=== PATIENT | male | born 1990 ===

== ENCOUNTER 2018-07-01 18:24 | Emergency (ER) | payer OTHER ==
[2018-07-01 18:37] VITALS: TEMP 98.8
--- NOTE | 2018-07-01 19:07 | ED PDOC ---
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 Patient cites school, work, and "life" as his stressors recently. Otherwise, denies suicidal ideation, homicidal ideation, hallucinations, shortness of breath, recent travel, prolonged immobility, recent surgery, leg / calf pain or swelling, history of blood clots, and any pleuritic pain. Pt denies any personal cardiac history, father has h/o stroke. pt does not smoke cigarettes PMD: none provided Past Medical History Reviewed: Historical Data, Nursing Documentation, Vital Signs Vital Signs: Last Vital Signs Temp 98.8 F 07/01/18 18:35 Pulse 120 H 07/01/18 18:35 Resp 16 07/01/18 18:35 BP 151/84 H 07/01/18 18:35 Pulse Ox 97 07/01/18 18:35 - Medical History PMH: Anxiety (not on meds) - Surgical History Surgical History: No Surg Hx - Family History Family History: States: Stroke (father), Hypertension (mother) - Social History Current smoker - smoking cessation education provided: No Alcohol: Social (last drink 2 days ago) Drugs: Cannabis (almost daily use) - Immunization History Hx Tetanus Toxoid Vaccination: No Hx Influenza Vaccination: No Hx Pneumococcal Vaccination: No - Home Medications Home Medications: Ambulatory Orders Medication Instructions Recorded No Known Home Med 01/30/17 - Allergies Allergies/Adverse Reactions: Allergies Allergy/AdvReac Type Severity Reaction Status Date / Time No Known Allergies Allergy Unverified 07/01/18 18:34 Review of Systems ROS Statement: Except As Marked, All Systems Reviewed And Found Negative Cardiovascular: Positive for: Chest Pain (tightness right sided) Respiratory: Negative for: Shortness of Breath, Pleuritic Pain Musculoskeletal: Negative for: Leg Pain (or swelling) Psych: Positive for: Anxiety. Negative for: Suicidal ideation (or homicidal ideation), Other (hallucinations) Physical Exam - Reviewed Nursing Documentation Reviewed: Yes Vital Signs Reviewed: Yes - Physical Exam Comments: GENERAL APPEARANCE: Patient is awake, alert, oriented x 3, anxious appearing. SKIN: Warm, dry; (-) cyanosis HEAD: atraumatic, normocephalic EYES: (-) conjunctival pallor, (-) scleral icterus, (-) nystagmus. ENMT: Mucous membranes moist. Airway patent: (-) stridor. NECK: (-) tenderness, (-) stiffness, (-) lymphadenopathy. HEART AND CARDIOVASCULAR: (+) tachycardia with regular rhythm; (-) murmur, (-) gallop. CHEST AND RESPIRATORY: chest wall; (+)point tenderness to right upper chest (- )crepitus (-)swelling, Lungs; (-) rales, (-) rhonchi, (-) wheezes; breath sounds equal. EXTREMITIES: pulses +2, no leg swelling or tenderness NEURO AND PSYCH: Mental status as above. 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 Pupils equal and reactive; EOMI; (-) facial asymmetry - Laboratory Results Result Diagrams: 07/01/18 19:15 07/01/18 19:15 - ECG ECG: Positive for: Interpreted By Me (discussed with Dr. Atkins), Viewed By Me ECG Rhythm: Positive for: Normal QRS, Normal ST Segment, Sinus Tachycardia (140bpm) O2 Sat by Pulse Oximetry: 97 Medical Decision Making Medical Decision Making: Initial Impression: anxiety Time: 1857 Initial Plan: --EKG --CMP --Trop I --CBC with differential --CXR --Place pt on quality assurance monitor final --Discussed case with Dr. Atkins who agrees with plan and assessment. He recommends 0.5mg Xanax and reevaluation of heart rate. --Crisis evaluation 2029 CXR reviewed by me as no active disease. 2034 Patient refused Xanax and states that he has been feeling much better for the past half hour with no more chest pain. Heart rate is now 65-70bpm and his heart and lungs are clear on reeval. He states he is ready to go home and plans to follow up with his PMD to obtain a psych referral. He notes he has been here multiple times and it has always been anxiety related. Discussed results, diagnosis, treatment, return precautions and f/u with pt who is understanding, in agreement and stable for dc Scribe Attestation: Documented by Natalie Hoover acting as a scribe for Murtaza Leonard PA-C. Provider Scribe Attestation: All medical record entries made by the Scribe were at my direction and personally dictated by me. I have reviewed the chart and agree that the record accurately reflects my personal performance of the history, physical exam, medical decision making, and the department course for this patient. I have also personally directed, reviewed, and agree with the discharge instructions and disposition. Disposition - Clinical Impression Clinical Impression: Anxiety, Chest pain, unspecified - Patient ED Disposition Is Patient to be Admitted: No Counseled Patient/Family Regarding: Studies Performed, Diagnosis, Need For Followup - Disposition Referrals: your, doctor [Other] Disposition: Routine/Home Disposition Time: 20:45 Condition: IMPROVED Additional Instructions: Thank you for letting us take care of you today. The emergency medical care you received today was directed at your acute symptoms. If you were prescribed any medication, please fill it and take as directed. It may take several days for your symptoms to resolve. Return to the Emergency Department if your symptoms worsen, do not improve, or if you have any other problems. Please contact your doctor in 2 days for re-evaluation and follow up / or call one of the physicians/clinics you have been referred to that are listed on the Patient Visit Information form that is included in your discharge packet. Bring any paperwork you were given at discharge with you along with any medications you are taking to your follow up visit. Our treatment cannot replace ongoing medical care by a primary care provider (PCP) outside of the emergency department. Instructions: Anxiety, Adult (DC), Chest Pain (DC) Forms: [employer] (Latvian) Print Language: IRANIAN - POA Present On Arrival: None
[2018-07-01 19:22] LABS: BASO % 0.6 % (0.0-2.0); EOS # 0.1 K/uL (0.0-0.7); EOS % 0.8 % (0.0-4.0); HEMOGLOBIN 14.4 g/dL (12.0-18.0); LYMPH # 1.1 K/uL (1.0-4.3); LYMPH % 15.5 % (20.0-40.0); MEAN CELL VOLUME 87.1 fl (80.0-94.0); MEAN CORPUSCULAR HEMOGLOBIN 29.5 pg (27.0-31.0); MEAN CORPUSCULAR HGB CONC 33.9 g/dL (33.0-37.0); MEAN PLATELET VOLUME 8.7 fl (7.2-11.7); MONO # 0.4 K/uL (0.0-0.8); MONO % 6.2 % (0.0-10.0); NEUT # 5.3 K/uL (1.8-7.0); NEUT % 76.9 % (50.0-75.0); RBC 4.87 Mil/uL (4.40-5.90); RED CELL DISTRIBUTION WIDTH 11.8 % (11.5-14.5); WHITE BLOOD COUNT 6.9 K/uL (4.8-10.8)
[2018-07-01 19:32] LABS: ALB/GLOB RATIO 1.7 (1.0-2.1); ALBUMIN 4.9 g/dL (3.5-5.0); ALT/SGPT 35 U/L (21-72); AST/SGOT 34 U/L (17-59); BLOOD UREA NITROGEN 26 mg/dl (9-20); CALCIUM 9.9 mg/dL (8.4-10.2); GFR NON-AFRICAN AMERICAN > 60
[2018-07-01 20:58] VITALS: BP 139/60; PULSE 79; RESP 17
[2018-07-01 22:30] VITALS: O2SAT 97
--- NOTE | 2018-07-02 08:37 | RAD ---
Date of service: 07/01/2018 HISTORY: chest pain COMPARISON: No prior. TECHNIQUE: Chest PA and lateral views FINDINGS: LUNGS: No active pulmonary disease. PLEURA: No significant pleural effusion identified. No pneumothorax apparent. CARDIOVASCULAR: No aortic atherosclerotic calcification present. Normal cardiac size. No pulmonary vascular congestion. OSSEOUS STRUCTURES: No significant abnormalities. VISUALIZED UPPER ABDOMEN: Normal. OTHER FINDINGS: None. IMPRESSION: No acute cardiopulmonary disease appreciated.
--- NOTE | 2018-07-02 09:41 | CARD ---
APPROVED REPORT Date of service: 07/01/2018 EKG Measurement Heart [id number] <Conclusion> Sinus tachycardia Otherwise normal ECG
== END 2018-07-01 20:58 | disposition home or self-care (01) ==
LOC: H.ER 18:24
DX: F41.0 Panic disorder [episodic paroxysmal anxiety] (principal); R07.89 Other chest pain